=== PATIENT | male | born 1975 | race African-American/Black ===

== ENCOUNTER 2024-09-03 03:11 | Emergency (ER) | payer OTHER ==
[~2024-09-03] VITALS: Ht 185.4 cm; Wt 97.0 kg
[2024-09-03 03:24] VITALS: O2SAT 99
[2024-09-03] MEDS: HYDROCODONE/ACETAMINOPHEN 5/325MG TABLET PO ONE (04:00)
[2024-09-03] MEDS: KETOROLAC 30MG/ML VIAL IM ONE (04:00)
[2024-09-03] MEDS ORDERED: IBUP-2029 MT (04:15)
[2024-09-03] MEDS ORDERED: CEPH500C2 MT (04:23)
[2024-09-03 04:30] VITALS: BP 148/98; PULSE 78; RESP 18; TEMP 36.7; O2SAT 99
== END 2024-09-03 04:32 | disposition home or self-care (01) ==
LOC: ER 03:30
DX: M79.89 Other specified soft tissue disorders (principal); M79.671 Pain in right foot
CPT/HCPCS: 93971; 96372; 99285; J1885; Z7610

== ENCOUNTER 2025-01-20 06:57 | Emergency (ER) | payer OTHER ==
[~2025-01-20] VITALS: Ht 182.9 cm; Wt 95.0 kg
[~2025-01-20 06:57] MED LIST: CEPH500C2 MT; IBUP-1455 MT
[2025-01-20 07:03] VITALS: TEMP 36.6; O2SAT 98
[2025-01-20] MEDS: KETOROLAC 30MG/ML VIAL IM ONE (08:01)
[2025-01-20] MEDS: HYDROCODONE/ACETAMINOPHEN 5/325MG TABLET PO ONE (08:03)
[2025-01-20] MEDS ORDERED: DICL100G58 TP (08:21)
[2025-01-20] MEDS: IBUPROFEN 600MG TABLET PO ONE (08:59)
[2025-01-20 09:05] VITALS: BP 141/97; PULSE 88; RESP 14; O2SAT 100
== END 2025-01-20 09:08 | disposition home or self-care (01) ==
LOC: ER 07:29
DX: S83.91XA Sprain of unspecified site of right knee, initial encounter (principal); Z79.899 Other long term (current) drug therapy; X58.XXXA Exposure to other specified factors, initial encounter; Y93.89 Activity, other specified; Y92.89 Other specified places as the place of occurrence of the external cause; Y99.8 Other external cause status
CPT/HCPCS: 73562; 99283; J1885; Z7610